=== PATIENT | male | born 1985 | race African-American/Black ===

== ENCOUNTER 2020-07-19 06:44 | Outpatient (REF) | payer OTHER, SELFPAY | END 2020-07-19 06:45 | disposition home or self-care (01) | LOC: HO.LAB 06:44 | PROVIDERS: Visit Provider Internal Medicine | DX: Z20.828 Contact with and (suspected) exposure to other viral communicable diseases (principal) | CPT/HCPCS: C9803; U0003 ==

== ENCOUNTER 2020-07-20 14:17 | Emergency (ER) | payer OTHER, SELFPAY ==
[2020-07-20 14:27] VITALS: BP 170/100; BP 178/103; PULSE 72; PULSE 75; RESP 24; TEMP 36.7; O2SAT 97; O2SAT 98; BMI 28.8
--- NOTE | 2020-07-20 14:57 | ED.AMS ---
HPI - Altered Mental Status General Chief Complaint: Altered Mental Status Stated Complaint: ?ETOH,FOUND IN VEHICLE Time Seen by Provider: 07/20/20 14:57 Source: patient and EMS Mode of arrival: EMS Limitations: no limitations History of Present Illness HPI narrative: patient was in park in the middle of the street - found to be confused by PD sent to ED MD complaint: confusion Onset (ago): minute(s) Severity: mild Consistency of symptoms: waxing and waning Context: drug abuse (patient admits to smoking PCP today) Associated symptoms: denies other symptoms Related Data Allergies Allergy/AdvReac Type Severity Reaction Status Date / Time No Known Allergies Allergy Verified 07/20/20 14:41 [No Known Allergies*] Review of Systems Review of Systems: Constitutional : No Weight loss, No Fever, No Chills, No Fatigue, No Malaise ENT/Mouth : No sore throat, No Rhinorrhea Eyes: No Eye Pain, No Swelling, No Redness Cardiovascular : No Chest Pain, No SOB, No Dyspnea on Exertion, No Orthopnea, No Edema, No Palpitations Respiratory : No Cough, No Sputum, No Wheezing Gastrointestinal : No Nausea, No Vomiting, No Diarrhea, No Constipation, No abdominal Pain, No Hematochezia, No Melena Genitourinary : No Dysuria, No Urinary Frequency, No Hematuria, Musculoskeletal : No joint pain, No Myalgias, No Joint Swelling Skin : No Skin Lesions, No rash Neuro : No Weakness, No Numbness, No Dizziness, No Headache Psych : No Anxiety/Panic, No Depression Heme/Lymph: No Bruising, No Bleeding,No Lymphadenopathy Endocrine : No Polyuria, No Polydipsia All other systems reviewed and are negative [facility] Past Medical History Medical History (Updated 07/20/20 @ 15:06 by Maddi Dutton DO) No active medical problems Social History Social History (Updated 07/20/20 @ 15:04 by Maddi Dutton DO) Smoking Status: Never smoker Substance Use Type: Hallucinogens Substance Use Type Other:: pcp Substance Use Frequency: Occasionally Advance Directives: No Advance Directives Information Provided: Yes Physical Exam Vital Signs: Vital Signs: Last Vital Signs Temp 98.1 F 07/20/20 14:27 Pulse 75 07/20/20 14:27 Resp 24 H 07/20/20 14:27 BP 178/103 H 07/20/20 14:27 Pulse Ox 97 07/20/20 14:27 Body Mass Index 28.8 Appearance: Alert. Oriented X3. No acute distress. Eyes: Pupils equal, round and reactive to light. very mild vertical nystagmus ENT: Pharynx normal. Neck: Normal inspection. Neck supple. CVS: Normal heart rate and rhythm. Pulses normal. Respiratory: No respiratory distress. Breath sounds normal. Abdomen: Soft and nontender. Skin: Skin warm and dry. Normal skin color. Normal skin turgor. Extremities: No lower extremity edema. No calf ttp Neuro: Oriented X 3. No motor deficit. No sensory deficit. MDM - Altered Mental Status MDM Narrative Medical decision making narrative: 34 yo male found in car parked in road no trauma, normal VS, alert and oriented x 3, calm, admits to PCP abuse - has sober adult ride home, no SI, has used PCP in the past multiple times has not been violent Discharge Plan Discharge Clinical Impression: Drug abuse, phencyclidine Patient Disposition: Home, Self-Care Instructions: Polysubstance Abuse (ED) Additional Instructions: return to ED for any worsening symptoms or concerns Stand Alone Forms: Work/School Release
--- NOTE | 2020-07-20 14:59 | PC.NURSE ---
Pt admitted to smoking pcp prior to event being found in truck. Pt is not combative. He is now cooperative and answering questions appropriately. A+Ox3. Plan for dc with responsible adult.
--- NOTE | 2020-07-20 15:26 | MHC.RECOVSUP ---
Recovery Support note: Patient is a 34 year old Bhutanese speaking male who was brought to [facility] ED via EMS due to PCP use. This designer writer offered patient the opportunity to discuss his substance use and recovery supports and patient declined, stating not really. Informed patient that there are supports in the community if and when he decides to cut back or stop using entirely. Provided patient with information on [facility] and encouraged patient to reach out to them if he is interested in additional information.
--- NOTE | 2020-07-20 15:46 | PC.NURSE ---
Pt discharged. Awaiting ride at this time. Pt educated on the need to stay until a responsible adult arrives for a ride.
== END 2020-07-20 16:16 | disposition home or self-care (01) ==
PROVIDERS: Emergency Provider Emergency Medicine; PCP Internal Medicine
DX: F16.159 Hallucinogen abuse with hallucinogen-induced psychotic disorder, unspecified (principal)
CPT/HCPCS: 99283

== ENCOUNTER 2020-09-09 11:07 | Outpatient (REF) | payer OTHER, SELFPAY | END 2020-09-09 11:08 | disposition home or self-care (01) | LOC: HO.LAB 11:07 | PROVIDERS: Visit Provider Internal Medicine | DX: Z20.822 Contact with and (suspected) exposure to COVID-19 (principal) | CPT/HCPCS: 36415; C9803; U0003; U0005 ==

== ENCOUNTER 2020-09-09 17:29 | Emergency (ER) | payer OTHER, SELFPAY ==
[2020-09-09 17:51] VITALS: BP 155/105; PULSE 116; RESP 18; TEMP 36.7; O2SAT 96; BMI 26.6
[2020-09-09 18:05] VITALS: BP 155/105; PULSE 116; RESP 18; TEMP 36.7
[2020-09-09 18:20] VITALS: BP 156/109; PULSE 109; RESP 16; TEMP 37.5; O2SAT 98
--- NOTE | 2020-09-09 18:45 | ED.PSYCH ---
HPI - Psych General Chief Complaint: Psychiatric Symptoms Stated Complaint: etoh Time Seen by Provider: 09/09/20 18:33 Source: patient Mode of arrival: ambulatory Limitations: no limitations Related Data Allergies Allergy/AdvReac Type Severity Reaction Status Date / Time No Known Allergies Allergy Verified 07/20/20 14:41 [No Known Allergies*] [facility] Past Medical History Medical History (Updated 07/21/20 @ 00:00 by Gian Mai) No active medical problems Social History Social History (Updated 07/20/20 @ 15:04 by Maddi Dutton DO) Alcohol intake: unknown Smoking Status: Unknown if ever smoked Use of substances other than those prescribed or required for medical reasons: Unknown Substance Use Type: Hallucinogens Advance Directives: No Advance Directives Information Provided: No Physical Exam Vital Signs: Vital Signs: Last Vital Signs Temp 99.5 F 09/09/20 18:20 Pulse 109 H 09/09/20 18:20 Resp 16 09/09/20 18:20 BP 156/109 H 09/09/20 18:20 Pulse Ox 98 09/09/20 18:20 Body Mass Index 26.6
--- NOTE | 2020-09-09 19:14 | ED.PSYCH ---
HPI - Psych General Chief Complaint: Psychiatric Symptoms <KANWAL Cheng - Last Filed: 09/29/20 10:42> Stated Complaint: etoh <KANWAL Cheng Last Filed: 09/29/20 10:42> Time Seen by Provider: 09/09/20 18:33 <KANWAL Cheng Last Filed: 09/29/20 10:42> Source: patient <KANWAL Cheng Last Filed: 09/29/20 10:42> Mode of arrival: EMS <KANWAL Cheng Last Filed: 09/29/20 10:42> Limitations: no limitations <KANWAL Cheng Last Filed: 09/29/20 10:42> History of Present Illness HPI Narrative: Patient is a 34-year-old male reporting no significant past medical history who was brought in by EMS. EMS was called by the [place] [employer] after they found the patient sitting in his car, passed out with empty beer cans in the seat. Apparently, the [employer] told EMS the patient could not have his car keys back. Upon my conversation with the patient, he told me that he and his girlfriend had found a place to park her car and proceeded to drink Marah together for a few hours. He then decided to smoke some PCP and his girlfriend declined. He states his reaction was not good but could not tell me what it was and his girlfriend called the police. He denies an altercation but admits that she is upset with him. He denies any thoughts of SI, HI auditory or visual hallucinations. He denies using any other street drugs. He states that he lives locally and just got a new apartment. The patient has no physical complaints. The patient denies any history of mental health issues or diagnoses or medications he takes on a daily basis. <KANWAL Cheng Last Filed: 09/29/20 10:42> Related Data Allergies/Adverse Reactions: Allergies Allergy/AdvReac Type Severity Reaction Status Date / Time No Known Allergies Allergy Verified 07/20/20 14:41 [No Known Allergies*] <KANWAL Cheng Last Filed: 09/29/20 10:42> Review of Systems Review of Systems: Yes all other systems are reviewed and are negative <KAWNAL Cheng - Last Filed: 09/29/20 10:42> [facility] Past Medical History Medical History: Medical History No active medical problems <KANWAL Cheng - Last Filed: 09/29/20 10:42> Social History Social History: Social History Alcohol intake: unknown Smoking Status: Unknown if ever smoked Substance Use Type: Hallucinogens <KANWAL Cheng - Last Filed: 09/29/20 10:42> Physical Exam Vital Signs: Vital Signs: Last Vital Signs Temp 99.4 F 09/10/20 00:13 Pulse 110 H 09/10/20 00:13 Resp 09/10/20 00:13 BP 151/108 H 09/10/20 00:13 Pulse Ox 95 09/10/20 00:13 Body Mass Index 26.6 <KANWAL Cheng - Last Filed: 09/29/20 10:42> Vital Signs: Last Vital Signs Temp 99.4 F 09/10/20 00:13 Pulse 110 H 09/10/20 00:13 Resp 09/10/20 00:13 BP 151/108 H 09/10/20 00:13 Pulse Ox 95 09/10/20 00:13 Body Mass Index 26.6 <KANWAL Alvares - Last Filed: 09/10/20 00:20> Vital Signs: Last Vital Signs Temp 99.4 F 09/10/20 00:13 Pulse 110 H 09/10/20 00:13 Resp 18 09/10/20 00:13 BP 151/108 H 09/10/20 00:13 Pulse Ox 95 09/10/20 00:13 Body Mass Index 26.6 <Ruperto Barriga MD - Last Filed: 09/29/20 23:17> Const: General: cooperative, healthy appearing, comfortable, no acute distress and well developed <KANWAL Cheng - Last Filed: 09/29/20 10:42> Nutritional Appearance: average body habitus <Danisha German PA - Last Filed: 09/29/20 10:42> Orientation/consciousness: patient oriented x3 <Danisha German PA - Last Filed: 09/29/20 10:42> HENMT: Head: Yes normal to inspection, Yes normocephalic and Yes atraumatic <Danisha German PA - Last Filed: 09/29/20 10:42> Ears: hearing grossly normal bilaterally <Danisha German PA - Last Filed: 09/29/20 10:42> General nose exam: Normal external nose present <Danisha German PA - Last Filed: 09/29/20 10:42> Face and sinus: Yes normal facial exam <Danisha German PA - Last Filed: 09/29/20 10:42> Eyes: Visual Lopez: normal visual lopez by confrontation <Danisha German PA - Last Filed: 09/29/20 10:42> Alignment and Position: alignment normal <Danisha German PA - Last Filed: 09/29/20 10:42> Periorbital: periorbital findings normal <Danisha German PA - Last Filed: 09/29/20 10:42> Eyelids: Yes eyelids normal <Danisha German PA - Last Filed: 09/29/20 10:42> Conjunctivae: conjunctivae normal <Danisha German PA - Last Filed: 09/29/20 10:42> Sclerae: sclerae normal <Danisha German PA - Last Filed: 09/29/20 10:42> Corneas: corneas normal <Danisha German PA - Last Filed: 09/29/20 10:42> Pupils: Pinpoint pupils bilaterally <Danisha German PA - Last Filed: 09/29/20 10:42> EOM: EOMs intact bilaterally <Danisha German PA - Last Filed: 09/29/20 10:42> Neck: Neck: Yes normal visual inspection, Yes full ROM, Yes no meningeal signs, Yes trachea midline and Yes supple <KANWAL Cheng - Last Filed: 09/29/20 10:42> Resp: Effort & Inspection: normal respiratory effort and able to speak in complete sentences <KANWAL Cheng - Last Filed: 09/29/20 10:42> Skin: General skin exam: no rashes or lesions noted <KANWAL Cheng - Last Filed: 09/29/20 10:42> Neuro: General: patient oriented x3 and no meningeal signs <KANWAL Cheng - Last Filed: 09/29/20 10:42> Extrem: General: Yes normal to inspection and Yes full ROM <KANWAL Cheng - Last Filed: 09/29/20 10:42> Psych: Appearance: grossly normal <KANWAL Cheng - Last Filed: 09/29/20 10:42> Mental Status: mental status grossly normal <KANWAL Cheng - Last Filed: 09/29/20 10:42> Speech and movement: Normal speech and movement present <KANWAL Cheng - Last Filed: 09/29/20 10:42> Affect: Indifferent affect present and Blunted affect present <KANWAL Cheng - Last Filed: 09/29/20 10:42> Attitude: Refuses to answer (attititude/behavior) (States he is embarrassed to give answers but is randomly cooperative) <KANWAL Cheng - Last Filed: 09/29/20 10:42> Thought content: suicidality, no homicidality and no hallucinations <KANWAL Cheng Last Filed: 09/29/20 10:42> Insight: Fair insight present (Psych) (Patient still seems altered upon my exam) <KANWAL Cheng - Last Filed: 09/29/20 10:42> Judgement: Fair judgement present (Psych) (Patient still seems altered upon my exam) <KANWAL Cheng Last Filed: 09/29/20 10:42> Course Course Course Narrative: Patient is a 34-year-old male with no significant past medical history who was brought in by EMS after the police call them to bring him into the emergency department for an evaluation. He denies SI HI hallucinations and stated was just him and his girlfriend getting high and he happened to smoke some PCP and drink some alcohol. Explained to patient we will do baseline labs and he needs to stay here until he is sober. He understands and agrees plan. <KANWAL Cheng - Last Filed: 09/29/20 10:42> -patient was evaluated by the care team who spoke to dispatch, and patient's girlfriend, and cleared from their standpoint for discharge. Patient's girlfriend called 911 secondary to him acting funny/lethargic, unknown that he used illicit substances. The police brought patient to ED because he reported he was COVID-19 positive. Patient persistently denies SI/HI. Is now clinically sober, ambulating in the ED with steady gait. Informed that he is COVID-19 positive, worrisome signs and symptoms and strict return precautions discussed. Patient verbalized understanding feel safe for discharge home -0019--patient tachycardic and hypertensive as expected from PCP/cocaine use. Is nontoxic appearing, clinically sober <KANWAL Alvares - Last Filed: 09/10/20 00:20> Reevaluation(s) Reevaluation #1: The care team has spoken with the [place] [employer], they state a similar story however they said they brought him here because the patient was worried he had COVID-19 and wanted a COVID-19 test. I will do a rapid COVID as requested by the care team. Extremely low suspicion he is positive. Patient is asking to leave, on physical exam his pupils are reactive, no longer pinpoint. His ETOH was negative but he was positive for PCP and cocaine. I asked the patient to stay until we have a results of the COVID test. Then, I have no problem with him being discharged. 9pm sign-out to KANWAL Henry <KANWAL Cheng - Last Filed: 09/29/20 10:42> Time: 20:59 <KANWAL Cheng - Last Filed: 09/29/20 10:42> MDM - Psych Lab Data Labs: Lab Results 02/12/2309/09/20 09/09/20 Range/Units 19:35 19:48 21:07 Urine Opiates Screen Not Detected (Not Detect) Ur Barbiturates Screen Not Detected (Not Detect) Ur Phencyclidine Scrn POSITIVE H (Not Detect) Ur Amphetamines Screen Not Detected (Not Detect) U Benzodiazepines Scrn Not Detected (Not Detect) Urine Cocaine Screen POSITIVE H (Not Detect) U Marijuana (THC) Screen Not Detected (Not Detect) Ethyl Alcohol < 10 mg/dL COVID-19 (RAFIQ) Positive A (Negative) COVID-19 Clin Com See Note <KANWAL Cheng - Last Filed: 09/29/20 10:42> Lab Results 09/09/20 09/09/20 09/09/20 Range/Units 19:35 19:48 21:07 Urine Opiates Screen Not Detected (Not Detect) Ur Barbiturates Screen Not Detected (Not Detect) Ur Phencyclidine Scrn POSITIVE H (Not Detect) Ur Amphetamines Screen Not Detected (Not Detect) U Benzodiazepines Scrn Not Detected (Not Detect) Urine Cocaine Screen POSITIVE H (Not Detect) U Marijuana (THC) Screen Not Detected (Not Detect) Ethyl Alcohol < 10 mg/dL COVID-19 (RAFIQ) Positive A (Negative) COVID-19 Clin Com See Note <KANWAL Alvares - Last Filed: 09/10/20 00:20> Lab Results 09/09/20 09/09/20 09/09/20 Range/Units 19:35 19:48 21:07 Urine Opiates Screen Not Detected (Not Detect) Ur Barbiturates Screen Not Detected (Not Detect) Ur Phencyclidine Scrn POSITIVE H (Not Detect) Ur Amphetamines Screen Not Detected (Not Detect) U Benzodiazepines Scrn Not Detected (Not Detect) Urine Cocaine Screen POSITIVE H (Not Detect) U Marijuana (THC) Screen Not Detected (Not Detect) Ethyl Alcohol < 10 mg/dL COVID-19 (RAFIQ) Positive A (Negative) COVID-19 Clin Com See Note <Ruperto Barriga MD - Last Filed: 09/29/20 23:17> Discharge Plan Discharge Clinical Impression: Illicit drug use, COVID-19 <KANWAL Cheng - Last Filed: 09/29/20 10:42> Patient Disposition: Home, Self-Care <KANWAL Cheng - Last Filed: 09/29/20 10:42> Instructions: Adult Overdose (ED) <KANWAL Cheng - Last Filed: 09/29/20 10:42> Additional Instructions: You have COVID-19. You need to self isolate for 10-14 days. Rest, stay hydrated. Monitor temperatures at home. You are spiking high fevers unresolved medications at home, shortness of breath, or chest pain return to the ED. Stop using drugs and drinking alcohol as it can kill you Inform people that you have been in contact with that your positive for COVID-19 <KANWAL Cheng - Last Filed: 09/29/20 10:42> Referrals: Physician,Unknown [Primary Care Provider] - 2 days <KANWAL Cheng - Last Filed: 09/29/20 10:42> Interventions: ED Discharge Assessment Last Done: 09/10/20 00:22 <KANWAL Cheng - Last Filed: 09/29/20 10:42> Discharge Date/Time: 09/10/20 00:30 <KANWAL Cheng - Last Filed: 09/29/20 10:42>
[2020-09-09 20:11] LABS: Amphetamine Screen Urine Not Detected (Not Detect); Barbiturates, Urine Not Detected (Not Detect); Benzodiazepines Screen Urine Not Detected (Not Detect); Cannabinoid Screen Urine Not Detected (Not Detect); Cocaine Screen Urine POSITIVE (Not Detect); Opiate Screen Urine Not Detected (Not Detect); Phencyclidine Screen Urine POSITIVE (Not Detect)
--- NOTE | 2020-09-09 20:11 | PC.NURSE ---
Cooperative with blood draw. On the phone at current, calm and cooperative
[2020-09-09 20:19] LABS: Ethanol < 10 mg/dL
--- NOTE | 2020-09-09 20:26 | PC.NURSE ---
Pt meeting with passenger coach driver at current
--- NOTE | 2020-09-09 20:32 | MHC.RECOVSUP ---
Reason for consult o Current location: #3 o Identified substance use concern: - - - - Support ? Intervention: o o o Community resources provided o Harm reduction discussion ? Plan: o o o o o Patient to follow up with [facility] after discharge ? Additional information: pt stated that he was brought in because he had a few drinks and was found in his car by [employer]. pt shared that he has being going through some challenges because he works all the time, travels due to work and is always on the road. pt is not on MAT and pt stated that he does not have a hx of mental health. 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 we spoke about harm reduction and also [facility] and how he would benefit from going there. I was able to leave him with some recovery resource as well.
[2020-09-09 20:46] VITALS: BP 140/100; PULSE 142; TEMP 37; O2SAT 96
[2020-09-09 21:21] LABS: COVID-19 Test Positive (Negative); IDNOW Serial# 9DD0AD1C
--- NOTE | 2020-09-09 23:25 | PC.NURSE ---
Report received. PT is waiting to be seen by provider in order to be cleared for discharge.
[2020-09-10 00:13] VITALS: BP 151/108; PULSE 110; RESP 18; TEMP 37.4; O2SAT 95
== END 2020-09-10 00:30 | disposition home or self-care (01) ==
PROVIDERS: Physician Assistant; Emergency Provider Internal Medicine
DX: U07.1 COVID-19 (principal); F19.90 Other psychoactive substance use, unspecified, uncomplicated
CPT/HCPCS: 36415; 80307; 80320; 87635; 99284; 99285

== ENCOUNTER 2020-09-21 09:52 | Outpatient (REF) | payer OTHER, SELFPAY | END 2020-09-21 09:53 | disposition home or self-care (01) | LOC: HO.LAB 09:52 | PROVIDERS: Visit Provider Internal Medicine | DX: Z20.822 Contact with and (suspected) exposure to COVID-19 (principal) | CPT/HCPCS: 36415; C9803; U0003; U0005 ==